=== PATIENT | female | born 1980 | race Caucasian/White ===

== ENCOUNTER 2016-07-30 06:40 | Inpatient (IN) | payer BC ==
[~2016-07-30] VITALS: Ht 167.6 cm; Wt 114.3 kg
--- NOTE | ~2016-07-30 | FD ---
ADMIT: 07/30/2016 RM/LOC: 226 [facility] MR#: [id number] [address] [id number] LEROYSHERRIE LOPES [address] [place] [address] Final Diagnosis SEX: F AGE: 35 : 1980 ADMISSION DATE: 07/30/2016 DISCHARGE DATE: 07/31/2016 FINAL DIAGNOSES: 1. A 35-year-old, 2, para 1, female at 39 weeks gestation. 2. Induction of labor, elective. PROCEDURE: Normal spontaneous vaginal delivery on 07/30/2016 without complications. Jacqueline Cummings MD/ gadiel JOB #: [id number] CC: Jacqueline Cummings MD, Attending Physician Jacqueline Cummings MD, Family Physician
[2016-08-01] MEDS ORDERED: PRENATAL VIT1 TAB PO (18:10)
[2016-08-01] MEDS ORDERED: CULTURELLE1 CAP PO (18:11)
[2016-08-01] MEDS ORDERED: MOTRIN-DPS800 MG PO (18:11)
[2016-08-01] MEDS ORDERED: LAN-O-SOOTHE7 GM TP (18:11)
[2016-08-01] MEDS ORDERED: [UNRECOGNIZED DRUG - OTHER] PR (18:11)
[2016-08-01] MEDS ORDERED: TUCKS1 EACH TP (18:11)
--- NOTE | 2016-08-12 17:14 | OR ---
ADMIT: 07/30/2016 RM/LOC: 226 [facility] MR#: [id number] 26[address] [facility] [address] [place], [place] [id number] SHERRIE KHAN [address] [place] [address] Operative/Delivery Room Report SEX: F AGE: 35 : 1980 SURGERY DATE: 07/30/2016 SURGEON: Jacqueline Cummings MD PROCEDURE: Normal spontaneous vaginal delivery. FINDINGS: Female , delivered in ROSENDO position at 1758 hours with a weight 8 pounds and 12 ounces, and scores 7 at 1 minute, 9 at 5 minutes. Intact placenta with 3-vessel cord. Midline episiotomy without extension. DESCRIPTION OF PROCEDURE: The patient [facility] the morning of 07/30/2016 at 39 weeks 2 days for induction of labor. Cervix was 3 cm, 50% effaced, and -2 station at that time. Artificial rupture of membranes was performed with clear fluid resulting. Pitocin was added for augmentation. She did receive an epidural for anesthesia. Progressed through the afternoon and was noted to be complete at about 1530 hours. She pushed for about an hour and a half to deliver a vigorous female over a midline episiotomy at 1758 hours. Did have a prolonged deceleration that prompted the episiotomy. On delivery of the head, a nuchal cord was noted and reduced easily. There was also left nuchal hand noted. With some repositioning, the remainder of delivered without difficulty. On delivery, baby was stimulated and placed on mother's abdomen. At a minute of age, cord was clamped and cut. Cord blood was obtained. The placenta delivered intact with a 3-vessel cord. Cervix, vagina, and perineum were explored and no extension of the midline episiotomy was noted. The episiotomy was repaired with 3-0 Vicryl in normal fashion. Good hemostasis was obtained. The uterus was clamped down well at the end of procedure and anticipate normal and cares. Jacqueline Cummings MD/ gadiel JOB #: [id number] CC: Jacqueline Cummings, Attending Physician Jacqueline Cummings, Family Physician
--- NOTE | 2016-08-12 17:14 | HP ---
ADMIT: 07/30/2016 RM/LOC: 226 [facility] MR#: [id number] [id number] [facility] [address] [place] [id number] SHERRIE KHAN [address] [place] [address] History and Physical SEX: F AGE: 35 : 1980 DATE OF SERVICE: CHIEF COMPLAINT: Elective induction. HISTORY OF PRESENT ILLNESS: The patient is a 35-year-old, 2 para 1-0- 0-1 female who presents at 39 weeks 2 days for elective induction of labor. She has had a normal course. She did present with mild obesity on her pre weight and has had a 40 pounds weight gain. No other issues though. She is blood type O positive, antibody screen negative, serology nonreactive, rubella immune, group B strep negative, and hepatitis B surface antigen negative. She passed her 1 hour glucose. Has had normal ultrasounds. PAST MEDICAL HISTORY: She has had 1 prior vaginal delivery at 38 weeks in 2012. No complications during that procedure. She has otherwise been in good health with no chronic medical issues. Has had a lymph node removed from the left neck in 2001, that was benign. No other surgeries. 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 Rare alcohol use prior to but no tobacco, alcohol, or drug use during the . No major medical issues in the family. PHYSICAL EXAMINATION: GENERAL: The patient is alert and in no distress. Weight is 252 pounds. She is afebrile. VITAL SIGNS: Blood pressure 138/79, heart tones are in the 150s and category I. Cervix is 3 cm, 50% effaced, and -2 station. Baby feels vertex and well applied. She is bg occasionally on tocometer but not feeling those. Artificial rupture of membranes was performed with scant clear fluid noted. She has trace edema. Estimated weight is 8-1/2 to 9 pounds and she has an adequate pelvis. LAB: Hemoglobin is 12.7, platelets 168. ASSESSMENT: 1. 39 week intrauterine in for elective induction. 2. Suspected large for gestational age . PLAN: We will add Pitocin to augment labor and we will monitor closely during her labor course. Jacqueline Cummings MD/ gadiel JOB #: [id number] CC: Jacqueline Cummings, Attending Physician Jacqueline Cummings, Family Physician
== END 2016-07-31 19:15 | disposition home or self-care (01) | DRG 775 ==
LOC: 2LDRP 06:40 → BC 06:40 → 2LDRP 07:01 → BC 08-04 08:00
PROVIDERS: ADMIT Family Medicine
PROC: 0W8NXZZ Division of Female Perineum, External Approach (ICD-10-PCS; principal; 2016-07-30)
PROC: 10907ZC Drainage of Amniotic Fluid, Therapeutic from Products of Conception, Via Natural or Artificial Opening (ICD-10-PCS; principal; 2016-07-30)
PROC: 10E0XZZ Delivery of Products of Conception, External Approach (ICD-10-PCS; principal; 2016-07-30)
DX: O69.81X0 Labor and delivery complicated by cord around neck, without compression, not applicable or unspecified (principal); O76 Abnormality in fetal heart rate and rhythm complicating labor and delivery; Z3A.39 39 weeks gestation of pregnancy; Z37.0 Single live birth